=== PATIENT | female | born 1980 | race African-American/Black ===

== ENCOUNTER 2021-05-08 13:28 | Emergency (ER) | payer OTHER, SELFPAY ==
[2021-05-08 13:58] VITALS: BP 129/80; PULSE 92; RESP 18; TEMP 37.3; O2SAT 95; BMI 37.2
[2021-05-08 14:44] VITALS: O2SAT 96
[2021-05-08 14:45] VITALS: O2SAT 96
--- NOTE | 2021-05-08 14:45 | ED_ITS ---
HPI - URI/Sore Throat General Chief Complaint: Upper Respiratory Symptoms Stated Complaint: covid? Time Seen by Provider: 05/08/21 14:30 History of Present Illness HPI Narrative: Patient is a 40-year-old female presents today with having coughing upper respiratory symptoms patient has been having symptoms for about 10 days. Got tested at [facility] about 1 week ago came back positive for coronavirus. Patient presented today because symptoms persist. Patient from home. No history of diabetes. Positive generalized malaise positive coughing no fever positive change in smell and taste. Patient is not vaccinated Review of Systems Review of Systems: Positive coughing upper respiratory symptoms Positive generalized malaise Yes all other systems are reviewed and are negative [facility] Past Medical History Attestation statement: The following information was validated with the patient. Surgical History Hx of appendectomy Social History Social History Alcohol intake: unknown Patient Tobacco Use Status: Tobacco use Unknown Patient : No Physical Exam Vital Signs: Vital Signs: Last Vital Signs Temp 99.2 F 05/08/21 13:58 Pulse 92 05/08/21 13:58 Resp 18 05/08/21 13:58 BP 129/80 05/08/21 13:58 Pulse Ox 96 05/08/21 14:44 Body Mass Index 37.2 Appearance: Alert. Oriented X3. No acute distress. Eyes: Pupils equal, round and reactive to light. ENT: Pharynx normal. Neck: Normal inspection. Neck supple. No lymph nodes noted. No crepitus CVS: Normal heart rate and rhythm. Pulses normal. Normal S1 and S2 Respiratory: No respiratory distress. Breath sounds normal. No Wheezing. No rales Abdomen: Soft and nontender. No rigidity. No distention. good BS x4 Skin: Skin warm and dry. Normal skin color. Normal skin turgor. Extremities: No lower extremity edema. Neurovascular intact to all extremities. No Lacerations. No Rash Neuro: Oriented X 3. No motor deficit. No sensory deficit. Moving all extermities. No slurred speech MDM - URI/Sore Throat MDM Narrative Medical decision making narrative: Patient well-appearing ambulated in emergency department I checked her pulse ox was 95% after ambulation. Lungs are clear signs and symptoms suggestive of COVID. Will discharge patient home at this time as she appears stable. She is 10 days out she is not a candidate for monoclonal antibody. In stable condition with discharge home. Discharge Plan Discharge Clinical Impression: COVID-19 Patient Disposition: Home, Self-Care Instructions: COVID-19 (Coronavirus Disease 2019) (ED) Additional Instructions: Please stay home until all symptom has resolved. No fever for at least 24-48 hours. Referrals: Physician,Unknown [Primary Care Provider] - 2 days
== END 2021-05-08 15:04 | disposition home or self-care (01) ==
PROVIDERS: Emergency Provider Emergency Medicine Emergency Medical Services; PCP Internal Medicine
DX: U07.1 COVID-19 (principal); R05 Cough
CPT/HCPCS: 99283; 99284